=== PATIENT | male | born 2000 ===

== ENCOUNTER 2022-11-20 16:54 | Emergency (ER) | payer OTHER ==
[~2022-11-20] VITALS: Ht 167.6 cm; Wt 56.7 kg
[2022-11-20] MEDS ORDERED: IBUPROFEN 400 MG TAB PO ONE (18:00)
[2022-11-20] MEDS ORDERED: IBUPROFEN800 MG PO (20:00)
[2022-11-20 20:12] VITALS: BP 118/80
== END 2022-11-20 20:12 | disposition home or self-care (01) ==
LOC: FSED 17:04
DX: S30.22XA Contusion of scrotum and testes, initial encounter (principal); W01.198A Fall on same level from slipping, tripping and stumbling with subsequent striking against other object, initial encounter; Y93.01 Activity, walking, marching and hiking; Y92.89 Other specified places as the place of occurrence of the external cause
CPT/HCPCS: 76870; 81003; 99283